=== PATIENT | male | born 1945 | race Caucasian/White ===

== ENCOUNTER 2018-10-06 10:06 | Emergency (ER) | payer MEDICARE, OTHER ==
[~2018-10-06] VITALS: Ht 182.9 cm; Wt 127.0 kg
[2018-10-06] MEDS ORDERED: SPIRIVA INH (10:33)
[2018-10-06] MEDS ORDERED: ADVAIR HFA 230M12 GM INH (10:33)
[2018-10-06] MEDS ORDERED: PROAIR HFA8.5 GM INH (10:34)
[2018-10-06] MEDS ORDERED: PERCOCET 10-321 EACH PO (10:35)
[2018-10-06] MEDS ORDERED: NEURONTIN600 MG PO (10:36)
[2018-10-06] MEDS ORDERED: BUMETANIDE 1 MG1 M1 PO (10:37)
[2018-10-06] MEDS ORDERED: LOSARTAN POTASS50 MG PO (10:37)
[2018-10-06] MEDS ORDERED: ASPIRIN325 PO (10:38)
[2018-10-06] MEDS ORDERED: VITAMIN D31000 UNIT PO (10:38)
[2018-10-06] MEDS ORDERED: PROVIGIL 100 M100 M1 PO (10:39)
[2018-10-06] MEDS ORDERED: FISH OIL 1,001000 M2 PO (10:39)
[2018-10-06] MEDS ORDERED: IRON PO (10:40)
[2018-10-06] MEDS ORDERED: PROTONIX 20 MG20 MG PO (10:40)
[2018-10-06] MEDS ORDERED: KLOR-CON 1010 MEQ PO (10:41)
[2018-10-06] MEDS ORDERED: CALCIUM PO (10:41)
[2018-10-06] MEDS ORDERED: COUMADIN 1MG TAB1 M1 PO (10:43)
[2018-10-06] MEDS ORDERED: SINGULAIR 10 MG10 M1 PO (10:43)
[2018-10-06] MEDS ORDERED: LEVEMIR SUBQ (10:45)
[2018-10-06] MEDS ORDERED: DUONEB INH (10:45)
[2018-10-06] MEDS ORDERED: NOVOLOG100 UNIT/1 SUBQ (10:46)
[2018-10-06] MEDS ORDERED: CENTANY30 GM TOP (11:44)
[2018-10-06 12:02] VITALS: BP 96/39
== END 2018-10-06 11:58 | disposition home or self-care (01) ==
LOC: M.ERS 10:06
DX: S51.811A Laceration without foreign body of right forearm, initial encounter (principal); E11.9 Type 2 diabetes mellitus without complications; J44.9 Chronic obstructive pulmonary disease, unspecified; Z88.8 Allergy status to other drugs, medicaments and biological substances; Z86.711 Personal history of pulmonary embolism; W25.XXXA Contact with sharp glass, initial encounter; Y93.89 Activity, other specified; Y92.89 Other specified places as the place of occurrence of the external cause; Y99.8 Other external cause status